=== PATIENT | female | born 1935 | race Caucasian/White ===

== ENCOUNTER 2019-06-27 11:11 | Observation (INO) | payer MEDICARE, BC, OTHER ==
[~2019-06-27] VITALS: Ht 157.5 cm; Wt 79.4 kg
[~2019-06-27 11:11] MED LIST: CALCIUM600 M1 OR; CELEBREX200 MG PO; CRESTOR10 MG PO; FISH OIL1000 MG PO; FOSAMAX70 MG PO; MULTIVITAMIN OR; OMEPRAZOLE40 MG PO
[2019-06-27] MEDS ORDERED: SYNTHROID25 MCG PO (11:23)
[2019-06-27 12:15] LABS: IMMATURE GRANULOCYTES 0.4 % (0.0-5.0); MEAN CELL VOLUME 90.3 fL CALC (80.0-100.0); MEAN CORPUSCULAR HGB 29.1 pG CALC (26.0-32.0); MEAN CORPUSCULAR HGB CONC 32.2 g/L CALC (32.0-36.0); NEUT# 2.81 thou/uL (2.00-7.15); RED BLOOD COUNT 4.74 mill/uL (4.20-5.60); RED CELL DISTRI WIDTH 13.8 % (11.5-15.5)
[2019-06-27 12:17] LABS: HEMATOCRIT 42.8 % (37.0-47.0); HEMOGLOBIN 13.8 g/dl (12.0-16.0)
[2019-06-27 12:31] LABS: ALBUMIN 4.1 g/dL (3.2-5.0); ALKALINE PHOSPHATASE 160 u/l (38-126); AMYLASE 89 u/l (30-110); ANION GAP 13 (6-22 (CALC)); BUN 21 mg/dL (8-23); BUN/CREATININE RATIO 19 (12-20 (CALC)); CARBON DIOXIDE 24 mmol/l (22-30); CHLORIDE 108 mmol/l (95-108); CREATININE 1.1 mg/dL (0.5-1.0); GFR 48 ML/MIN (>=60 (CALC)); GFR FOR AFR.AMER. 58 ML/MIN (>=60 (CALC)); LIPASE 123 u/l (23-300); SGOT/AST 27 u/l (9-36); SODIUM 141 mmol/l (137-146)
[2019-06-27 12:38] LABS: BILIRUBIN, TOTAL 0.6 mg/dL (0.0-1.4)
[2019-06-27 12:42] LABS: MYOGLOBIN 49 ng/mL (0 - 62)
[2019-06-27 12:53] LABS: URINE BILIRUBIN - DIPSTICK NEGATIVE (NEGATIVE); URINE BLOOD DIPSTICK SMALL (NEGATIVE); URINE COLOR YELLOW; URINE GLUCOSE - DIPSTICK NEGATIVE (NEGATIVE); URINE KETONE NEGATIVE (NEGATIVE); URINE LEUK ESTERASE NEGATIVE (NEGATIVE); URINE NITRITE - DIPSTICK NEGATIVE (Negative); URINE PROTEIN - DIPSTICK NEGATIVE (NEG-TRACE); URINE UROBILINOGEN - DIPSTICK 0.2 E.U./dL (0.2)
[2019-06-27 13:13] LABS: URINE SQUAMOUS EPITHELIAL CELL FEW EPI/hpf (0-FEW)
[2019-06-27 14:40] VITALS: BP 119/70
[2019-06-27 14:47] LABS: MAGNESIUM 1.9 mg/dL (1.6-2.3)
[2019-06-27 20:30] VITALS: BP 112/61
[2019-06-27 23:51] VITALS: BP 140/61
[2019-06-28 03:50] VITALS: BP 119/71
[2019-06-28 06:51] LABS: ANION GAP 11 (6-22 (CALC)); BUN 24 mg/dL (8-23); BUN/CREATININE RATIO 24 (12-20 (CALC)); CARBON DIOXIDE 24 mmol/l (22-30); CHLORIDE 109 mmol/l (95-108); GFR 53 ML/MIN (>=60 (CALC)); GFR FOR AFR.AMER. > 60 ML/MIN (>=60 (CALC)); POTASSIUM 4.1 mmol/l (3.5-5.1); SODIUM 140 mmol/l (137-146)
[2019-06-28 07:45] VITALS: BP 116/73
[2019-06-28 11:13] VITALS: BP 105/60
[2019-06-28 14:50] VITALS: BP 112/68
== END 2019-06-28 17:52 | disposition home or self-care (01) ==
LOC: ED 11:11 → ED-I 12:10 → ED 12:10 → ED-I 12:50 → ED 13:17 → MS2 13:18
PROVIDERS: Emergency Medicine; Nurse Practitioner Family; ADMIT Internal Medicine; ATTEND Internal Medicine
DX: R07.9 Chest pain, unspecified (principal); N17.9 Acute kidney failure, unspecified; K21.9 Gastro-esophageal reflux disease without esophagitis; E78.5 Hyperlipidemia, unspecified; E03.9 Hypothyroidism, unspecified; Z95.0 Presence of cardiac pacemaker; Z87.891 Personal history of nicotine dependence
CPT/HCPCS: G0378